=== PATIENT | male | born 1990 | race Two or more races ===

== ENCOUNTER 2019-02-14 19:07 | Emergency (ER) | payer SELFPAY ==
[2019-02-14 19:43] VITALS: BP 126/84
--- NOTE | 2019-02-14 20:35 | ED ---
Throat Pain/Nasal Congestion - HPI Summary HPI Summary: 28 year old male presents with dental pain for the past couple days. He states that had a root canal many years ago. He states that he broke his tooth a couple days and has been having increasing pain and swelling to the area. No fevers chest pain or shortness breath. No swelling of the eyes. He has been taking Tylenol with no relief. He has not establish care with a dentist. Has no medical conditions. - History of Current Complaint Chief Complaint: EDDentalPain Time Seen by Provider: 02/14/19 20:15 - Allergies/Home Medications Allergies/Adverse Reactions: Allergies Allergy/AdvReac Type Severity Reaction Status Date / Time No Known Allergies Allergy Verified 02/14/19 18:17 PMH/Surg Hx/FS Hx/Imm Hx Endocrine/Hematology History: Denies: Hx Anticoagulant Therapy Respiratory History: Denies: Hx Asthma Infectious Disease History: No Infectious Disease History: Denies: Traveled Outside the [place] in Last 30 Days - Family History Known Family History: Positive: Non-Contributory - Social History Substance Use Type: Reports: None Smoking Status (MU): Unknown if Ever Smoked Review of Systems Negative: Fever Positive: Dental Pain Negative: Chest Pain Negative: Shortness Of Breath All Other Systems Reviewed And Are Negative: Yes Physical Exam Triage Information Reviewed: Yes Vital Signs On Initial Exam: Initial Vitals Temp Pulse Resp BP Pulse Ox 98.7 F 59 16 126/84 98 02/14/19 19:40 02/14/19 19:40 02/14/19 19:40 02/14/19 19:40 02/14/19 19:40 Vital Signs Reviewed: Yes Appearance: Positive: Well-Appearing Skin: Positive: Warm, Dry Head/Face: Positive: Normal Head/Face Inspection Eyes: Positive: Normal, EOMI, ROSA, Conjunctiva Clear ENT: Positive: Normal ENT inspection, Pharynx normal, TMs normal Dental: Positive: Percussion Tenderness @ - 19, Dental Fracture @ - 19, Abscess @ - no loculation felt Respiratory/Lung Sounds: Positive: Clear to Auscultation, Breath Sounds Present Cardiovascular: Positive: Normal, RRR Abdomen Description: Positive: Nontender, Soft Bowel Sounds: Positive: Present Musculoskeletal: Positive: Normal Neurological: Positive: Normal Psychiatric: Positive: Normal Diagnostics - Vital Signs Vital Signs Temp Pulse Resp BP Pulse Ox 02/14/19 19:40 98.7 F 59 16 126/84 98 - Laboratory Lab Statement: Any lab studies that have been ordered have been reviewed, and results considered in the medical decision making process. Re-Evaluation - Re-Evaluation First Eval Re-Evaluation Time: 21:49 Comment: patient states that I did not prescribe a strong enough narcotic and that is unacceptable EENT Course/Dx - Course Course Of Treatment: 28 year old male presents with dental pain for the past couple days. He states that had a root canal many years ago. He states that he broke his tooth a couple days and has been having increasing pain and swelling to the area. No fevers chest pain or shortness breath. No swelling of the eyes. He has been taking Tylenol with no relief. He has not establish care with a dentist. Has no medical conditions. On exam has fractured tooth 19 with erythema. Some swelling but no fluctuation felt. Will place on penicillin. Had a lengthy discussion with patient and said that he needs a stronger pain medications as Tylenol ibuprofen are not working. We will discharge on tramadol. When went to discharge patient, patient says tramadol was not good enough medication for him and wants something stronger. he states that he demands that he has the pain medication that he wants. Discussed that he was discharge with pain medication that is appropriate for his condition. Patient became upset and left. - Differential Diagnoses Differential Diagnoses: Dental Abscess, Dental Caries, Fractured Tooth - Diagnoses Provider Diagnoses: Dental abscess Discharge - Sign-Out/Discharge Documenting (check all that apply): Patient Departure Patient Received Moderate/Deep Sedation with Procedure: No - Discharge Plan Condition: Good Disposition: HOME Prescriptions: Penicillin VK TAB* [Penicillin VK 250 mg Tab*] 500 mg PO QID #39 tab traMADol TAB* [Ultram*] 50 mg PO Q8H PRN #9 tab MDD 3 PRN Reason: Pain Patient Education Materials: Dental Abscess (ED) Referrals: [facility] [place] [facility] [Outside] Additional Instructions: Take antibiotics: 4 times a day for 10 days, first dose given in ED Use ibuprofen or tyenlol every 6 hours and tramadol for break through pain every 8 hours Avoid hard, crunchy food until seen by dentist Follow up with dentist as soon as possible Return to ED if develop any new or worsening symptom Establish care with primary care physician - Billing Disposition and Condition Condition: GOOD Disposition: Home Images - Images Dental: 1 - cracked
[2019-02-14] MEDS: Penicillin VK TAB* 250 MG PO ONE ×2 (21:33→21:55)
== END 2019-02-14 21:56 | disposition home or self-care (01) ==
LOC: ED 19:07
DX: K04.7 Periapical abscess without sinus (principal)
CPT/HCPCS: 99281; A9270-GY